=== PATIENT | female | born 1980 | race Caucasian/White ===

== ENCOUNTER 2023-11-16 16:00 | Emergency (ER) | payer OTHER ==
[~2023-11-16] VITALS: Ht 170.2 cm; Wt 94.3 kg
[2023-11-16 16:24] VITALS: BP 113/74; PULSE 77; RESP 18; TEMP 98.3; O2SAT 98
[2023-11-16] MEDS: LIDOCAINE 5% 1 EA PATCH TP ONE (19:16)
[2023-11-16] MEDS: KETOROLAC 30 MG/ML VIAL IM ONE (19:16)
[2023-11-16] MEDS: CYCLOBENZAPRINE 10 MG TAB PO ONE (19:17)
[2023-11-16 19:55] LABS: APPEARANCE,URINE CLEAR (CLEAR); BILIRUBIN,URINE NEGATIVE (NEGATIVE); BLOOD, URINE TRACE-I (NEGATIVE); COLOR,URINE YELLOW (YELLOW); LEUKOCYTE ESTERASE ,URINE NEGATIVE (NEGATIVE); NITRITE, URINE NEGATIVE (NEGATIVE); PROTEIN,URINE NEGATIVE (NEGATIVE); UGLUCOSE NEGATIVE (NEGATIVE); UROBILINOGEN,URINE 0.2 EU/dL (0.2 - 1)
[2023-11-16] MEDS ORDERED: LID5T TP (20:11)
[2023-11-16] MEDS ORDERED: IBUP-2213 PO (20:11)
[2023-11-16] MEDS ORDERED: ACET-2619 PO (20:11)
[2023-11-16] MEDS ORDERED: CYCL-711 PO (20:11)
[2023-11-16] MEDS ORDERED: ACET-8905 PO (20:12)
== END 2023-11-16 20:25 | disposition home or self-care (01) ==
LOC: MED 16:00
DX: S39.012A Strain of muscle, fascia and tendon of lower back, initial encounter (principal); Z79.899 Other long term (current) drug therapy; X50.0XXA Overexertion from strenuous movement or load, initial encounter; Y92.89 Other specified places as the place of occurrence of the external cause; Y93.89 Activity, other specified; Y99.8 Other external cause status
CPT/HCPCS: 81003; 96372; 99283; J1885